=== PATIENT | female | born 1975 | race Caucasian/White ===

== ENCOUNTER → 2017-05-03 | Outpatient (CLI) | payer OTHER, MEDICAID ==
[~2017-05-03] MED LIST: IOPAMIDOL (ISOVUE-300) 100 ML BTL ONE
== END ==
LOC: FIMAGING 11:08
PROVIDERS: ATTEND Family Medicine
DX: N20.0 Calculus of kidney (principal)
CPT/HCPCS: 74177; Q9967

== ENCOUNTER 2018-03-17 15:28 | Emergency (ER) | payer OTHER, MEDICAID ==
[2018-03-17 15:34] VITALS: BP 131/88
--- NOTE | 2018-03-17 15:47 | EDPHY ---
H & P Stated Complaint: 3wks itchy scalp/missed dermatology appt sunday Time Seen by Provider: 03/17/18 15:46 HPI/ROS: HPI: This is a 42-year-old female who presents with Chief Complaint: 3wks itchy scalp/missed dermatology appt Sunday Location: Scalp Quality: Itchiness Duration: 3 weeks Signs and Symptoms: no fever, no nausea, no vomiting, no photophobia, no noise sensitivity, no neck stiffness, no ear pain, no tinnitus, no nasal congestion, no sinus pressure, no weakness, no radiation, no aura Timing: Worsening Severity: Moderate Context: Patient reports that she has had an itchy scalp for the last 3 weeks. She reports that she has noticed white flakes when she itches. She admits to being under a lot of stress and has even had her hair fall out. She had a dermatology appointment on Sunday but was unable to make a due to her daughter being ill. She denies any new lotions, detergents, shampoos. LMP 2-3 weeks ago. Modifying Factors: None Comment: ROS: see HPI Constitutional: No fever, no chills, no weight loss Eyes: No blurred vision Respiratory: No shortness of breath, no cough Cardiovascular: No chest pain, no palpitations Gastrointestinal: No nausea, no vomiting, no diarrhea, no hematemesis, no blood in stool Genitourinary: No dysuria, no blood in urine Extremities: No myalgias, no edema Neurologic: No weakness, no numbness Skin: No rashes, no petechiae Hematologic: No bruising, no bleeding MEDICAL/SURGICAL/SOCIAL HISTORY: pmh- DEPRESSION, BIPOLAR , HYPOTHYROID, CHRONIC MIGRAINES, ANXIETY DISORDER. psh- , plastic Social history: Family history noncontributory. CONSTITUTIONAL: Extremely well-appearing slightly anxious middle-aged white female, awake and alert, no obvious distress HEENT: Atraumatic and normocephalic, scalp shows plaque-like areas with white flakes. PERRL, EOMI. Nares patent; no rhinorrhea; no nasal mucosal edema. Tympanic membranes clear. Oropharynx clear, no exudate and moist pink mucosa. Airway patent. No lymphadenopathy. No meningismus. Cardiovascular: Normal S1/S2, regular rate, regular rhythm, without murmur rub or gallop. PULMONARY/CHEST: Symmetrical and nontender. Clear to auscultation bilaterally. Good air movement. No accessory muscle usage. ABDOMEN: Soft, nondistended, nontender, no rebound, no guarding, no peritoneal signs, no masses or organomegaly. No CVAT. EXTREMITIES: 2/2 pulses, strength 5/5, no deformities, no clubbing, no cyanosis or edema. NEUROLOGICAL: no focal neuro deficits. GCS 15. SKIN: Warm and dry, no erythema. no rash. Good capillary refill. Source: Patient Exam Limitations: No limitations - Personal History LMP (Females 10-55): 22-28 Days Ago Current Tetanus Diphtheria and Acellular Pertussis (TDAP): Yes Tetanus Vaccine Date: 2008 - Medical/Surgical History Hx Asthma: No Hx Chronic Respiratory Disease: No Hx Diabetes: No Hx Cardiac Disease: No Hx Renal Disease: No Hx Cirrhosis: No Hx Alcoholism: No Hx HIV/AIDS: No Hx Splenectomy or Spleen Trauma: No Other PMH: pmh- DEPRESSION, BIPOLAR , HYPOTHYROID, CHRONIC MIGRAINES, ANXIETY DISORDER. psh- , plastic - Social History Smoking Status: Never smoked Constitutional: Initial Vital Signs Temperature (C) 37 C 03/17/18 15:31 Heart Rate 92 03/17/18 15:31 Respiratory Rate 17 03/17/18 15:31 Blood Pressure 131/88 H 03/17/18 15:31 O2 Sat (%) 97 03/17/18 15:31 O2 Delivery Mode Room Air Allergies/Adverse Reactions: pseudoephedrine [Pseudoephedrine] Allergy (Mild, Verified 03/17/18 15:30) "hyper" morphine [Morphine] Adverse Reaction (Mild, Verified 03/17/18 15:30) Home Medications: Medication Instructions Recorded Thyroid [Arthur Thyroid (RX)] 120 mg PO DAILY10 01/12/12 Effexor 09/13/13 VYVANSE 09/13/13 Clonazepam 05/15/15 Topamax 05/15/15 Cleocin 05/02/17 Lunesta 05/02/17 Maxalt 05/02/17 Polyethylene Glycol 300 05/02/17 Relpax 05/02/17 Ketoconazole 2% [Nizoral Shampoo 1 applic TP DAILY #120 ml 03/17/18 (*)] hydrOXYzine HCL [Vistaril 25MG] 25 mg PO Q6 PRN #6 tab 03/17/18 Medical Decision Making ED Course/Re-evaluation: No signs of secondary infection. Given prescription for ketoconazole shampoo and hydroxyzine as needed for itching. Advised to keep follow-up appointment with Dermatology. This patient was seen under the supervision of my secondary supervising physician. I evaluated care for this patient independently. Discussed this patient with Dr. Johnson who did not see the patient. Differential Diagnosis: Differential diagnosis includes but is not limited to psoriasis, rosacea, fungal , lice, scabies. Departure - Departure Disposition: Home, Routine, Self-Care Clinical Impression: Seborrheic dermatitis of scalp Condition: Good Instructions: Seborrheic Dermatitis (DC) Additional Instructions: Use Ketoconazole shampoo once daily for the next 7 days and then use it 3 times a week until symptoms improve. Take hydroxyzine every 6 hr as needed for itching. Please follow-up with Dermatology. Referrals: Dre Allen DO [Primary Care Provider] - As per Instructions Prescriptions: hydrOXYzine HCL [Vistaril 25MG] 25 mg PO Q6 PRN #6 tab PRN Reason: Itching Ketoconazole 2% [Nizoral Shampoo (*)] 1 applic TP DAILY #120 ml
== END 2018-03-17 16:19 | disposition home or self-care (01) ==
DX: L21.9 Seborrheic dermatitis, unspecified (principal)